=== PATIENT | male | born 1985 | race Caucasian/White ===

== ENCOUNTER 2019-04-08 16:40 | Emergency (ER) | payer OTHER ==
[~2019-04-08] VITALS: Ht 175.3 cm; Wt 101.6 kg
[2019-04-08 16:46] VITALS: Ht 175.3 cm; Wt 101.6 kg
[2019-04-08 17:28] VITALS: BP 156/75
== END 2019-04-08 17:28 | disposition home or self-care (01) ==
LOC: ED 16:40
DX: L03.113 Cellulitis of right upper limb (principal); W57.XXXA Bitten or stung by nonvenomous insect and other nonvenomous arthropods, initial encounter; Y93.89 Activity, other specified; Y92.89 Other specified places as the place of occurrence of the external cause; Y99.8 Other external cause status